=== PATIENT | male | born 1945 | race Caucasian/White ===

== ENCOUNTER 2018-04-21 18:17 | Emergency (ER) | payer OTHER, SELFPAY ==
[2018-04-21 18:27] VITALS: BP 160/70; PULSE 64; RESP 18; O2SAT 97
--- NOTE | 2018-04-21 18:27 | ED.CHESTPAIN ---
HPI - Chest Pain <CHITO Roberts - Last Filed: 04/21/18 22:16> General Chief Complaint: Chest Pain Stated Complaint: CHEST TIGHTNESS AND ACROSS BACK Time Seen by Provider: 04/21/18 18:27 Source: patient Mode of arrival: ambulatory Limitations: no limitations History of Present Illness HPI narrative: 72-year-old male here for complaint of pain into his chest that started couple hours prior to arrival. He states that started as sternal chest pain that started shortly after lunch. He states he did have a spicy lunch and was wondering if this may have caused his chest pain. Ago for walk-in for the chest pain started which did not help his chest pain or did not worsen his chest pain either. He denies any trauma to the chest wall. He denies any nausea vomiting or shortness of breath. No fevers no chills. At time of exam his chest pain had resolved. He denies any other concerns or complaints. Related Data Home Medications Medication Instructions Recorded Confirmed aspirin 81 mg PO QDAY #0 02/15/17 glimepiride [Amaryl] #0 02/15/17 metformin [Glucophage XR] 500 mg PO BID #0 02/15/17 simvastatin 40 mg PO QDAY #0 02/15/17 tamsulosin [Flomax] 0.4 mg PO QDAY #0 02/15/17 Allergies Allergy/AdvReac Type Severity Reaction Status Date / Time No Known Allergies Allergy Uncoded 10/10/17 11:48 Review of Systems <CHITO Roberts - Last Filed: 04/21/18 22:16> Constitutional Denies chills, Denies fatigue, Denies fever(s), Denies lethargy and Denies weakness Eyes Denies change in vision, Denies eye discharge, Denies irritation and Denies loss of vision ENT Ears, Nose, Mouth, and Throat: Denies change in voice, Denies neck pain and Denies sore throat Cardiovascular Denies dyspnea and Denies dyspnea on exertion Comments: Chest pain Respiratory Denies cough, Denies dyspnea, Denies dyspnea on exertion and Denies wheezing Gastrointestinal Gastrointestinal: Denies abdominal pain, Denies change in bowel habits, Denies diarrhea, Denies nausea and Denies vomiting Genitourinary Denies hematuria, Denies flank pain, Denies urinary incontinence and Denies urinary urgency Musculoskeletal Denies neck pain Integumentary/Breasts Denies pruritus, Denies erythema, Denies rash and Denies wounds Neurologic Denies confusion, Denies loss of vision and Denies weakness Psychiatric Denies anxiety, Denies confusion, Denies depression, Denies homicidal ideation and Denies suicidal ideation Endocrine Denies fatigue and Denies flushing Hematologic/Lymphatic Denies easy bruising Allergic/Immunologic Denies wheezing Exam <CHITO Roberts - Last Filed: 04/21/18 22:16> Initial Vital Signs Initial Vital Signs: Vital Signs Pulse Rate 64 04/21/18 18:27 Respiratory Rate 18 04/21/18 18:27 Blood Pressure 160/70 H 04/21/18 18:27 Pulse Oximetry 97 04/21/18 18:27 Const General: cooperative and well developed Nutritional Appearance: well nourished Orientation: alert, awake, oriented x3 and not confused HENMT Mouth: oral mucosae normal and moist mucous membranes Eyes General: appearance normal, both eyes and all related structures Eyelids: eyelids normal Conjunctivae: conjunctivae normal Sclera: sclerae normal Pupils: PERRL EOM: EOM intact bilaterally Neck Neck: normal visual inspection, trachea midline, No lymphadenopathy, No midline deformity and No JVD Lymphatic: No lymphedema Chest Chest: normal inspection of the chest Resp Effort & Inspection: normal respiratory effort, able to speak in complete sentences, no respiratory distress and no use of accessory muscles Auscultation: clear to auscultation bilaterally, no rales, no rhonchi and no wheezes Cardio Rate: regular rate Rhythm: regular rhythm Heart Sounds: no click, no gallops, no murmurs and no rubs Pulses: normal peripheral pulses GI Inspection: non-distended Palpation: soft, no hepatosplenomegaly, No guarding, No pulsatile mass and No tender Auscultation: normal bowel sounds Skin General: no rashes or lesions noted, No jaundice and No petechiae Neuro General: alert, oriented x3, gait normal and no focal motor deficits Speech: speech normal <Elza Chavez DO - Last Filed: 04/22/18 04:24> Initial Vital Signs Initial Vital Signs: Vital Signs Pulse Rate 64 04/21/18 18:27 Respiratory Rate 18 04/21/18 18:27 Blood Pressure 160/70 H 04/21/18 18:27 Pulse Oximetry 97 10/21/18 18:27 Course <CHITO Roberts - Last Filed: 04/21/18 22:16> Orders Ordered: ED Orders 04/21/18 20:58 Troponin I Stat Discontinued Medications Pantoprazole Sodium (Protonix) 20 mg IV NOW ONE Stop: 04/21/18 18:46 Last Admin: 04/21/18 18:54 Dose: 20 mg Vital Signs - 8 hr 04/21/18 20:34 04/21/18 22:00 Pulse Rate 65 57 L Respiratory Rate 18 19 Blood Pressure [Left Arm] 138/64 130/59 L Pulse Oximetry 98 97 <Elza Chavez DO - Last Filed: 04/22/18 04:24> Orders Ordered: ED Orders 04/21/18 20:58 Troponin I Stat Discontinued Medications Pantoprazole Sodium (Protonix) 20 mg IV NOW ONE Stop: 04/21/18 18:46 Last Admin: 04/21/18 18:54 Dose: 20 mg Vital Signs - 8 hr 04/21/18 20:34 04/21/18 22:00 Pulse Rate 65 57 L Respiratory Rate 18 19 Blood Pressure [Left Arm] 138/64 130/59 L Pulse Oximetry 98 97 MDM - Chest Pain <CHITO Roberts - Last Filed: 04/21/18 22:16> Lab Data Result diagrams: 04/21/18 18:36 04/21/18 18:36 Lab Results 04/21/18 04/21/18 04/21/18 Range/Units 18:36 18:36 20:58 WBC 7.4 (4.5-11.0) X10^3/uL RBC 4.35 L (4.5-5.9) X10^6/uL Hgb 13.2 L (13.5-17.5) g/dL Hct 39.5 L (41-53) % MCV 90.8 (80-100) fL MCH 30.2 (26-34) PG MCHC 33.3 (30-36) % RDW 14.0 (11.6-14.8) % Plt Count 241 (150-400) X10^3/uL Neut % (Auto) 65.2 (50-75) % Lymph % (Auto) 23.0 L (25-40) % [place] % (Auto) 8.8 (3-14) % Eos % (Auto) 2.2 (2-4) % Baso % (Auto) 0.8 (0-2) % Neut # (Auto) 4800 (1797-7195) /uL Sodium 143 (137-145) mmol/L Potassium 4.1 (3.4-5.1) mmol/L Chloride 104 (98-107) mmol/L Carbon Dioxide 26 (22-32) mmol/L BUN 22 H (9-20) mg/dL Creatinine 0.80 (0.66-1.25) mg/dL Estimated GFR > 60.0 (>60) mL/min BUN/Creatinine Ratio 27.5 H (6-22) Glucose 143 H (80-110) mg/dL Calcium 9.1 (8.4-10.2) mg/dL Total Bilirubin 0.8 (0.2-1.3) mg/dL AST 20 (17-59) IU/L ALT 35 (21-72) IU/L Alkaline Phosphatase 87 (38-126) U/L Total Creatine Kinase 57 (55-170) U/L CK-MB (CK-2) TNP CK-MB (CK-2) Rel Index TNP Troponin I < 0.012 < 0.012 (0.01-0.034) ng/mL Total Protein 6.7 (6.3-8.2) g/dL Albumin 4.4 (3.5-5.0) g/dL Globulin 2.3 (1.7-4.1) g/dL Albumin/Globulin Ratio 1.9 (1.0-2.8) Imaging Data Chest x-ray: Radiologist's impression: [address] [address] XRay Report Signed Patient: Bam Schulte KMR#: [id number] : 6Acct:[id number] Age/Sex: 72 / MDate of Service: 04/21/18 Loc: ED Accession Number: [id number] Procedure: XR chest 1V Ordering Provider: Remi Melendez PROCEDURE: XR CHEST 1V INDICATIONS: chest pain TECHNIQUE: One view of the chest was acquired. COMPARISON: None. FINDINGS: Surgical changes and devices: None. Lungs and pleura: No pleural effusions or pneumothorax. Lungs are clear. Mediastinum: Mediastinal contours appear normal. Heart size is normal. Bones and chest wall: No suspicious bony lesions. Overlying soft tissues appear unremarkable. IMPRESSION: No acute cardiopulmonary findings. Dictated by: Renee Monson M.D. on 04/21/2018 at 19:19 Approved by: Renee Monson M.D. on 04/21/2018 at 19:19 ECG Data Interpretation: EKG shows normal sinus rhythm with no ST elevation or depression. No ectopy. Ventricular rate is 64. Pr interval 196. QRS duration of 85. QT of 389. MDM Narrative Medical decision making narrative: CBC and Chem panel were obtained were unremarkable. EKG shows normal sinus rhythm with no ST elevation or depression. Patient's chest pain resolved while in the emergency room. He was given Protonix to help with his symptoms. 2 sets of cardiac enzymes were obtained and were negative. Chest x-ray was obtained was negative for any acute findings. Differential between acid indigestion and chest wall pain. Use [id number] Tylenol as needed for any discomfort [id number] antacids as needed for any acid indigestion. Follow up with primary care provider later this week for re-evaluation. For any worsening symptoms return to the emergency room. <Elza Chavez, DO - Last Filed: 04/22/18 04:24> Lab Data Lab Results 04/21/18 04/21/18 04/21/18 Range/Units 18:36 18:36 20:58 WBC 7.4 (4.5-11.0) X10^3/uL RBC 4.35 L (4.5-5.9) X10^6/uL Hgb 13.2 L (13.5-17.5) g/dL Hct 39.5 L (41-53) % MCV 90.8 (80-100) fL MCH 30.2 (26-34) PG MCHC 33.3 (30-36) % RDW 14.0 (11.6-14.8) % Plt Count 241 (150-400) X10^3/uL Neut % (Auto) 65.2 (50-75) % Lymph % (Auto) 23.0 L (25-40) % [place] % (Auto) 8.8 (3-14) % Eos % (Auto) 2.2 (2-4) % Baso % (Auto) 0.8 (0-2) % Neut # (Auto) 4800 (2151-1220) /uL Sodium 143 (137-145) mmol/L Potassium 4.1 (3.4-5.1) mmol/L Chloride 104 (98-107) mmol/L Carbon Dioxide 26 (22-32) mmol/L BUN 22 H (9-20) mg/dL Creatinine 0.80 (0.66-1.25) mg/dL Estimated GFR > 60.0 (>60) mL/min BUN/Creatinine Ratio 27.5 H (6-22) Glucose 143 H (80-110) mg/dL Calcium 9.1 (8.4-10.2) mg/dL Total Bilirubin 0.8 (0.2-1.3) mg/dL AST 20 (17-59) IU/L ALT 35 (21-72) IU/L Alkaline Phosphatase 87 (38-126) U/L Total Creatine Kinase 57 (55-170) U/L CK-MB (CK-2) TNP CK-MB (CK-2) Rel Index TNP Troponin I < 0.012 < 0.012 (0.01-0.034) ng/mL Total Protein 6.7 (6.3-8.2) g/dL Albumin 4.4 (3.5-5.0) g/dL Globulin 2.3 (1.7-4.1) g/dL Albumin/Globulin Ratio 1.9 (1.0-2.8) Discharge Plan Departure Patient Disposition: Home Clinical Impression: Chest pain Discharge Date/Time: 04/21/18 22:05 Interventions: ED Discharge Assessment Last Done: 04/21/18 22:57 Instructions: DI for Chest Pain Activity Restrictions/Additional Instructions: Laboratory results imaging and EKG today were unremarkable. Differential between and chest wall pain and acid ingestion. Follow up with her primary care provider later this week for re-evaluation. For any worsening symptoms return to the emergency room. Use [id number] Tylenol as needed for any discomfort. May use qqvz-ggm-aeqcmcr antacids as needed for acid indigestion. Prescriptions: No Action simvastatin 40 MG tablet 40 mg PO QDAY Qty: 0 RF: 0 tamsulosin [Flomax] 0.4 MG capsule,extended release 24hr 0.4 mg PO QDAY Qty: 0 RF: 0 metformin [Glucophage XR] 500 MG tablet extended release 24 hr 500 mg PO BID Qty: 0 RF: 0 aspirin 81 MG tablet,delayed release (DR/EC) 81 mg PO QDAY Qty: 0 RF: 0 glimepiride [Amaryl] 1 MG tablet Qty: 0 RF: 0 Referrals: Pierce Mace MD [Primary Care Provider] - <Elza Chavez DO - Last Filed: 04/22/18 04:24> Cosign ED Attending Cosignature Attestation: I was immediately available in the department for consultation. This documentation has been reviewed and I agree with assessment and plan. Supervised by Elza Chavez DO
--- NOTE | 2018-04-21 18:46 | DI.RAD.S_ITS ---
PROCEDURE: XR CHEST 1V INDICATIONS: chest pain TECHNIQUE: One view of the chest was acquired. COMPARISON: None. FINDINGS: Surgical changes and devices: None. Lungs and pleura: No pleural effusions or pneumothorax. Lungs are clear. Mediastinum: Mediastinal contours appear normal. Heart size is normal. Bones and chest wall: No suspicious bony lesions. Overlying soft tissues appear unremarkable. IMPRESSION: No acute cardiopulmonary findings. Dictated by: Renee Monson M.D. on 04/21/2018 at 19:19 Approved by: Renee Monson M.D. on 04/21/2018 at 19:19
[2018-04-21 18:54] LABS: Add Manual Diff / Slide Review NO; Basophils Percent Auto 0.8 % (0-2); Eosinophils Percent Auto 2.2 % (2-4); Hematocrit 39.5 % (41-53); Hemoglobin 13.2 g/dL (13.5-17.5); Mean Corpuscular HGB Conc 33.3 % (30-36); Mean Corpuscular Hemoglobin 30.2 PG (26-34); Mean Corpuscular Volume 90.8 fL (80-100); Monocytes Percent Auto 8.8 % (3-14); Neutrophils Absolute Auto 4800 /uL (3000-5900); Neutrophils Percent Auto 65.2 % (50-75); Platelet Count 241 X10^3/uL (150-400); Red Blood Cell Count 4.35 X10^6/uL (4.5-5.9); White Blood Cell Count 7.4 X10^3/uL (4.5-11.0)
[2018-04-21] MEDS: PANTOPRAZOLE 40 MG VIAL 20 MG IV (18:54)
[2018-04-21 19:00] LABS: Alanine Aminotransferase 35 IU/L (21-72); Albumin 4.4 g/dL (3.5-5.0); Albumin Globulin Ratio 1.9 (1.0-2.8); Alkaline Phosphatase 87 U/L (38-126); Aspartate Aminotransferase 20 IU/L (17-59); BUN Creatinine Ratio 27.5 (6-22); Bilirubin Total 0.8 mg/dL (0.2-1.3); Blood Urea Nitrogen 22 mg/dL (9-20); Calcium 9.1 mg/dL (8.4-10.2); Carbon Dioxide 26 mmol/L (22-32); Chloride 104 mmol/L (98-107); Creatine Kinase 57 U/L (55-170); Estimated Glomerular Filt Rate > 60.0 mL/min (>60); Globulin 2.3 g/dL (1.7-4.1); Glucose 143 mg/dL (80-110); HEMOLYSIS < 15 (0-50); Potassium 4.1 mmol/L (3.4-5.1); Sodium 143 mmol/L (137-145); Total Protein 6.7 g/dL (6.3-8.2)
[2018-04-21 19:15] LABS: Troponin I < 0.012 ng/mL (0.01-0.034)
--- NOTE | 2018-04-21 19:32 | PC.NURSE ---
Pt reports eating something that tasted spicy or garlicy. left him with a sour taste in his mouth. Then a while later he started to feel a tightness across his chest. He thought a walk would help and it did not. he decided to come in and get evaluated. He also reports he started Flonaise on sunday for head congestion. he wonders if that may be related.
[2018-04-21 20:09] VITALS: BP 131/68; PULSE 63; RESP 14; O2SAT 97
[2018-04-21 20:34] VITALS: BP 138/64; PULSE 65; RESP 18; O2SAT 98
--- NOTE | 2018-04-21 20:59 | PC.NURSE ---
drawn by lab
[2018-04-21 21:44] LABS: Troponin I < 0.012 ng/mL (0.01-0.034)
--- NOTE | 2018-04-21 21:54 | ED_ITS ---
HPI - Chest Pain <CHITO Roberts - Last Filed: 04/21/18 22:16> General Chief Complaint: Chest Pain Stated Complaint: CHEST TIGHTNESS AND ACROSS BACK Time Seen by Provider: 04/21/18 18:27 Source: patient Mode of arrival: ambulatory Limitations: no limitations History of Present Illness HPI narrative: 72-year-old male here for complaint of pain into his chest that started couple hours prior to arrival. He states that started as sternal chest pain that started shortly after lunch. He states he did have a spicy lunch and was wondering if this may have caused his chest pain. Ago for walk-in for the chest pain started which did not help his chest pain or did not worsen his chest pain either. He denies any trauma to the chest wall. He denies any nausea vomiting or shortness of breath. No fevers no chills. At time of exam his chest pain had resolved. He denies any other concerns or complaints. Related Data Home Medications Medication Instructions Recorded Confirmed aspirin 81 mg PO QDAY #0 02/15/17 glimepiride [Amaryl] #0 02/15/17 metformin [Glucophage XR] 500 mg PO BID #0 02/15/17 simvastatin 40 mg PO QDAY #0 02/15/17 tamsulosin [Flomax] 0.4 mg PO QDAY #0 02/15/17 Allergies Allergy/AdvReac Type Severity Reaction Status Date / Time No Known Allergies Allergy Uncoded 10/10/17 11:48 Review of Systems <CHITO Roberts - Last Filed: 04/21/18 22:16> Constitutional Denies chills, Denies fatigue, Denies fever(s), Denies lethargy and Denies weakness Eyes Denies change in vision, Denies eye discharge, Denies irritation and Denies loss of vision ENT Ears, Nose, Mouth, and Throat: Denies change in voice, Denies neck pain and Denies sore throat Cardiovascular Denies dyspnea and Denies dyspnea on exertion Comments: Chest pain Respiratory Denies cough, Denies dyspnea, Denies dyspnea on exertion and Denies wheezing Gastrointestinal Gastrointestinal: Denies abdominal pain, Denies change in bowel habits, Denies diarrhea, Denies nausea and Denies vomiting Genitourinary Denies hematuria, Denies flank pain, Denies urinary incontinence and Denies urinary urgency Musculoskeletal Denies neck pain Integumentary/Breasts Denies pruritus, Denies erythema, Denies rash and Denies wounds Neurologic Denies confusion, Denies loss of vision and Denies weakness Psychiatric Denies anxiety, Denies confusion, Denies depression, Denies homicidal ideation and Denies suicidal ideation Endocrine Denies fatigue and Denies flushing Hematologic/Lymphatic Denies easy bruising Allergic/Immunologic Denies wheezing Exam <CHITO Roberts - Last Filed: 04/21/18 22:16> Initial Vital Signs Initial Vital Signs: Vital Signs Pulse Rate 64 04/21/18 18:27 Respiratory Rate 18 04/21/18 18:27 Blood Pressure 160/70 H 04/21/18 18:27 Pulse Oximetry 97 04/21/18 18:27 Const General: cooperative and well developed Nutritional Appearance: well nourished Orientation: alert, awake, oriented x3 and not confused HENMT Mouth: oral mucosae normal and moist mucous membranes Eyes General: appearance normal, both eyes and all related structures Eyelids: eyelids normal Conjunctivae: conjunctivae normal Sclera: sclerae normal Pupils: PERRL EOM: EOM intact bilaterally Neck Neck: normal visual inspection, trachea midline, No lymphadenopathy, No midline deformity and No JVD Lymphatic: No lymphedema Chest Chest: normal inspection of the chest Resp Effort & Inspection: normal respiratory effort, able to speak in complete sentences, no respiratory distress and no use of accessory muscles Auscultation: clear to auscultation bilaterally, no rales, no rhonchi and no wheezes Cardio Rate: regular rate Rhythm: regular rhythm Heart Sounds: no click, no gallops, no murmurs and no rubs Pulses: normal peripheral pulses GI Inspection: non-distended Palpation: soft, no hepatosplenomegaly, No guarding, No pulsatile mass and No tender Auscultation: normal bowel sounds Skin General: no rashes or lesions noted, No jaundice and No petechiae Neuro General: alert, oriented x3, gait normal and no focal motor deficits Speech: speech normal <Elza Chavez DO - Last Filed: 04/22/18 04:24> Initial Vital Signs Initial Vital Signs: Vital Signs Pulse Rate 64 04/21/18 18:27 Respiratory Rate 18 04/21/18 18:27 Blood Pressure 160/70 H 04/21/18 18:27 Pulse Oximetry 97 10/21/18 18:27 Course <CHITO Roberts - Last Filed: 04/21/18 22:16> Orders Ordered: ED Orders 04/21/18 20:58 Troponin I Stat Discontinued Medications Pantoprazole Sodium (Protonix) 20 mg IV NOW ONE Stop: 04/21/18 18:46 Last Admin: 04/21/18 18:54 Dose: 20 mg Vital Signs - 8 hr 04/21/18 20:34 04/21/18 22:00 Pulse Rate 65 57 L Respiratory Rate 18 19 Blood Pressure [Left Arm] 138/64 130/59 L Pulse Oximetry 98 97 <Elza Chavez DO - Last Filed: 04/22/18 04:24> Orders Ordered: ED Orders 04/21/18 20:58 Troponin I Stat Discontinued Medications Pantoprazole Sodium (Protonix) 20 mg IV NOW ONE Stop: 04/21/18 18:46 Last Admin: 04/21/18 18:54 Dose: 20 mg Vital Signs - 8 hr 04/21/18 20:34 04/21/18 22:00 Pulse Rate 65 57 L Respiratory Rate 18 19 Blood Pressure [Left Arm] 138/64 130/59 L Pulse Oximetry 98 97 MDM - Chest Pain <CHITO Roberts - Last Filed: 04/21/18 22:16> Lab Data Result diagrams: 04/21/18 18:36 04/21/18 18:36 Lab Results 04/21/18 04/21/18 04/21/18 Range/Units 18:36 18:36 20:58 WBC 7.4 (4.5-11.0) X10^3/uL RBC 4.35 L (4.5-5.9) X10^6/uL Hgb 13.2 L (13.5-17.5) g/dL Hct 39.5 L (41-53) % MCV 90.8 (80-100) fL MCH 30.2 (26-34) PG MCHC 33.3 (30-36) % RDW 14.0 (11.6-14.8) % Plt Count 241 (150-400) X10^3/uL Neut % (Auto) 65.2 (50-75) % Lymph % (Auto) 23.0 L (25-40) % [place] % (Auto) 8.8 (3-14) % Eos % (Auto) 2.2 (2-4) % Baso % (Auto) 0.8 (0-2) % Neut # (Auto) 4800 (0579-5382) /uL Sodium 143 (137-145) mmol/L Potassium 4.1 (3.4-5.1) mmol/L Chloride 104 (98-107) mmol/L Carbon Dioxide 26 (22-32) mmol/L BUN 22 H (9-20) mg/dL Creatinine 0.80 (0.66-1.25) mg/dL Estimated GFR > 60.0 (>60) mL/min BUN/Creatinine Ratio 27.5 H (6-22) Glucose 143 H (80-110) mg/dL Calcium 9.1 (8.4-10.2) mg/dL Total Bilirubin 0.8 (0.2-1.3) mg/dL AST 20 (17-59) IU/L ALT 35 (21-72) IU/L Alkaline Phosphatase 87 (38-126) U/L Total Creatine Kinase 57 (55-170) U/L CK-MB (CK-2) TNP CK-MB (CK-2) Rel Index TNP Troponin I < 0.012 < 0.012 (0.01-0.034) ng/mL Total Protein 6.7 (6.3-8.2) g/dL Albumin 4.4 (3.5-5.0) g/dL Globulin 2.3 (1.7-4.1) g/dL Albumin/Globulin Ratio 1.9 (1.0-2.8) Imaging Data Chest x-ray: Radiologist's impression: [address] [address] XRay Report Signed Patient: Bam Schulte KMR#: [id number] : 6Acct:[id number] Age/Sex: 72 / MDate of Service: 04/21/18 Loc: ED Accession Number: [id number] Procedure: XR chest 1V Ordering Provider: Remi Melendez PROCEDURE: XR CHEST 1V INDICATIONS: chest pain TECHNIQUE: One view of the chest was acquired. COMPARISON: None. FINDINGS: Surgical changes and devices: None. Lungs and pleura: No pleural effusions or pneumothorax. Lungs are clear. Mediastinum: Mediastinal contours appear normal. Heart size is normal. Bones and chest wall: No suspicious bony lesions. Overlying soft tissues appear unremarkable. IMPRESSION: No acute cardiopulmonary findings. Dictated by: Renee Monson M.D. on 04/21/2018 at 19:19 Approved by: Renee Monson M.D. on 04/21/2018 at 19:19 ECG Data Interpretation: EKG shows normal sinus rhythm with no ST elevation or depression. No ectopy. Ventricular rate is 64. Pr interval 196. QRS duration of 85. QT of 389. MDM Narrative Medical decision making narrative: CBC and Chem panel were obtained were unremarkable. EKG shows normal sinus rhythm with no ST elevation or depression. Patient's chest pain resolved while in the emergency room. He was given Protonix to help with his symptoms. 2 sets of cardiac enzymes were obtained and were negative. Chest x-ray was obtained was negative for any acute findings. Differential between acid indigestion and chest wall pain. Use over-the- counter Tylenol as needed for any discomfort [id number] antacids as needed for any acid indigestion. Follow up with primary care provider later this week for re-evaluation. For any worsening symptoms return to the emergency room. <Elza Chavez, DO - Last Filed: 04/22/18 04:24> Lab Data Lab Results 04/21/18 04/21/18 04/21/18 Range/Units 18:36 18:36 20:58 WBC 7.4 (4.5-11.0) X10^3/uL RBC 4.35 L (4.5-5.9) X10^6/uL Hgb 13.2 L (13.5-17.5) g/dL Hct 39.5 L (41-53) % MCV 90.8 (80-100) fL MCH 30.2 (26-34) PG MCHC 33.3 (30-36) % RDW 14.0 (11.6-14.8) % Plt Count 241 (150-400) X10^3/uL Neut % (Auto) 65.2 (50-75) % Lymph % (Auto) 23.0 L (25-40) % [place] % (Auto) 8.8 (3-14) % Eos % (Auto) 2.2 (2-4) % Baso % (Auto) 0.8 (0-2) % Neut # (Auto) 4800 (5981-3559) /uL Sodium 143 (137-145) mmol/L Potassium 4.1 (3.4-5.1) mmol/L Chloride 104 (98-107) mmol/L Carbon Dioxide 26 (22-32) mmol/L BUN 22 H (9-20) mg/dL Creatinine 0.80 (0.66-1.25) mg/dL Estimated GFR > 60.0 (>60) mL/min BUN/Creatinine Ratio 27.5 H (6-22) Glucose 143 H (80-110) mg/dL Calcium 9.1 (8.4-10.2) mg/dL Total Bilirubin 0.8 (0.2-1.3) mg/dL AST 20 (17-59) IU/L ALT 35 (21-72) IU/L Alkaline Phosphatase 87 (38-126) U/L Total Creatine Kinase 57 (55-170) U/L CK-MB (CK-2) TNP CK-MB (CK-2) Rel Index TNP Troponin I < 0.012 < 0.012 (0.01-0.034) ng/mL Total Protein 6.7 (6.3-8.2) g/dL Albumin 4.4 (3.5-5.0) g/dL Globulin 2.3 (1.7-4.1) g/dL Albumin/Globulin Ratio 1.9 (1.0-2.8) Discharge Plan Departure Patient Disposition: Home Clinical Impression: Chest pain Discharge Date/Time: 04/21/18 22:05 Interventions: ED Discharge Assessment Last Done: 04/21/18 22:57 Instructions: DI for Chest Pain Activity Restrictions/Additional Instructions: Laboratory results imaging and EKG today were unremarkable. Differential between and chest wall pain and acid ingestion. Follow up with her primary care provider later this week for re-evaluation. For any worsening symptoms return to the emergency room. Use [id number]-[id number] Tylenol as needed for any discomfort. May use mepk-ssb-hjsirrn antacids as needed for acid indigestion. Prescriptions: No Action simvastatin 40 MG tablet 40 mg PO QDAY Qty: 0 RF: 0 tamsulosin [Flomax] 0.4 MG capsule,extended release 24hr 0.4 mg PO QDAY Qty: 0 RF: 0 metformin [Glucophage XR] 500 MG tablet extended release 24 hr 500 mg PO BID Qty: 0 RF: 0 aspirin 81 MG tablet,delayed release (DR/EC) 81 mg PO QDAY Qty: 0 RF: 0 glimepiride [Amaryl] 1 MG tablet Qty: 0 RF: 0 Referrals: Pierce Mace MD [Primary Care Provider] - <Elza Chavez DO - Last Filed: 04/22/18 04:24> Cosign ED Attending Cosignature Attestation: I was immediately available in the department for consultation. This documentation has been reviewed and I agree with assessment and plan. Supervised by Elza Chavez DO
[2018-04-21 22:00] VITALS: BP 130/59; PULSE 57; RESP 19; O2SAT 97
== END 2018-04-21 22:05 | disposition home or self-care (01) ==
PROVIDERS: Emergency Provider Nurse Practitioner Family; PCP Internal Medicine
DX: R07.89 Other chest pain (principal)
CPT/HCPCS: 36415; 36591; 71045; 80053; 82550; 84484; 85025; 93005; 93010; 96374; 99283; 99285; C9113

== ENCOUNTER → 2019-09-05 10:42 | Outpatient (CLI) | payer OTHER, SELFPAY ==
--- NOTE | 2019-09-05 | DI.US.S_ITS ---
PROCEDURE: US ABDOMEN LIMITED INDICATIONS: INGUINAL HERNIA TECHNIQUE: Real-time focused scanning was performed of the abdomen, with image documentation. COMPARISON: None. FINDINGS: Left inguinal hernia although does not contain bowel loops with or without Valsalva maneuver. IMPRESSION: Left inguinal hernia as above. Dictated by: Tyshawn Sen M.D. on 09/05/2019 at 17:15 Approved by: Tyshawn Sen M.D. on 09/05/2019 at 17:17
== END ==
PROVIDERS: PCP Internal Medicine; Referring Provider Student in an Organized Health Care Education/Training Program; Visit Provider Student in an Organized Health Care Education/Training Program
DX: K40.90 Unilateral inguinal hernia, without obstruction or gangrene, not specified as recurrent (principal)
CPT/HCPCS: 76705

== ENCOUNTER → 2019-10-22 11:11 | Outpatient (CLI) | payer OTHER, SELFPAY ==
[2019-10-22 11:45] LABS: Add Manual Diff / Slide Review NO; Basophils Absolute Auto 0 /uL (0-100); Basophils Percent Auto 0.4 % (0-2); Eosinophils Absolute Auto 100 /uL (0-450); Eosinophils Percent Auto 0.9 % (2-4); Hematocrit 40.2 % (41-53); Hemoglobin 13.6 g/dL (13.5-17.5); Lymphocytes Absolute Auto 1200 /uL (1100-4500); Mean Corpuscular HGB Conc 33.9 % (30-36); Mean Corpuscular Hemoglobin 31.1 PG (26-34); Mean Corpuscular Volume 91.5 fL (80-100); Monocytes Absolute Auto 600 /uL (0-900); Monocytes Percent Auto 7.7 % (3-14); Neutrophils Absolute Auto 5400 /uL (1500-7000); Platelet Count 239 X10^3/uL (150-400); Red Blood Cell Count 4.39 X10^6/uL (4.5-5.9); Red Cell Distribution Width 13.8 % (11.6-14.8); White Blood Cell Count 7.2 X10^3/uL (4.5-11.0)
[2019-10-22 11:57] LABS: Hemoglobin A1C% w Est Avg Glu 6.5 % (4.0-6.0)
== END ==
PROVIDERS: PCP Student in an Organized Health Care Education/Training Program; Referring Provider Student in an Organized Health Care Education/Training Program; Visit Provider Student in an Organized Health Care Education/Training Program
DX: D64.9 Anemia, unspecified (principal); E11.9 Type 2 diabetes mellitus without complications
CPT/HCPCS: 36415; 83036; 85025

== ENCOUNTER 2023-02-22 08:26 | Day surgery (SDC) | payer OTHER, SELFPAY ==
--- NOTE | 2023-02-22 | PATH_ITS ---
[facility] Accession Number: [id number] No. of containers..04 Tissue . 01 Material submitted: . PART A: cecum - CECAL POLYPS PART B: colon - ASCENDING POLYPS PART C: colon - TRANSVERSE POLYPS PART D: sigmoid colon - SIGMOID POLYP . 01 Diagnosis: A. Cecal Polyps, Biopsy: Tubular adenoma. Hyperplastic polyp. . B. Ascending Colon Polyps, Biopsy: Tubulovillous adenoma fragments. Tubular adenomas. . C. Transverse Colon Polyps, Biopsy: Tubular adenoma. . D. Sigmoid Colon Polyp, Biopsy: Tubular adenoma. [facility] 03/06/2023 1542 Local . 01 Electronically signed: . Janine Kilpatrick MD, Pathologist NPI- [id number] . 01 Gross description: . Part A: CECAL POLYPS: Received in formalin is 2 fragment(s) of begum, soft tissue measuring 0.4 x 0.4 x 0.2 cm to 0.1 x 0.1 x 0.1 cm submitted entirely in 1 cassette(s) Part B: ASCENDING POLYPS: Received in formalin is multiple fragment(s) of begum, soft tissue measuring 2.0 x 1.0 x 0.3 cm in aggregate submitted entirely in 1 cassette(s) Part C: TRANSVERSE POLYPS: Received in formalin is 1 fragment(s) of begum, soft tissue measuring 1.0 x 0.4 x 0.3 cm submitted entirely in 1 cassette(s) Part D: SIGMOID POLYP: Received in formalin is 1 fragment(s) of begum, soft tissue measuring 0.3 x 0.2 x 0.2 cm submitted entirely in 1 cassette(s) /AAY 02/24/2023 0237 Local . 01 Pathologist provided ICD-10: D12.0, D12.2, D12.3, D12.5 . 01 CPT . 172341, 620473, 223953, 145540 Specimen Comment: A courtesy copy of this report has been sent to [phone] Performed at: 01 [facility] [address] [place] [address] [id number] MD Mike Gallagher MD Phone: [phone]
[2023-02-22 08:44] VITALS: BMI 24.7
[2023-02-22 09:10] VITALS: BP 161/78; PULSE 59; RESP 16; TEMP 36.1; O2SAT 98
[2023-02-22] MEDS: LACTATED RINGERS 1,000 ML 42 ML IV (09:14)
--- NOTE | 2023-02-22 10:05 | PM.HP.1 ---
History of Present Illness History of Present Illness Date Patient Seen: 02/22/23 Time Patient Seen: 10:05 Chief complaint: SDC Narrative: Bam is a 77-year-old man who is here for colonoscopy. His last 1 was about 7 years ago and he thinks 1 or 2 small polyps were removed. His mother had colon cancer in her 70s. [facility] Social History household members: spouse Smoking Status: Never smoker alcohol intake: never Meds Home Medications and Allergies Home Medications Medication Instructions Recorded Confirmed Type glimepiride 1 mg tablet (Amaryl) ##0 02/15/17 History metformin 500 mg tablet,extended 500 mg PO BID ##0 02/15/17 02/22/23 History release 24 hr (Glucophage XR) simvastatin 40 mg tablet 40 mg PO QDAY ##0 02/15/17 02/22/23 History tamsulosin 0.4 mg capsule (Flomax) 0.4 mg PO QDAY ##0 02/15/17 02/22/23 History ferrous sulfate 325 mg (65 mg 325 mg PO DAILY 02/22/23 02/22/23 History iron) tablet (FeroSul) lisinopril 2.5 mg tablet 2.5 mg PO DAILY 02/22/23 02/22/23 History Allergies Allergy/AdvReac Type Severity Reaction Status Date / Time No Known Allergies Allergy Uncoded 10/10/17 11:48 Exam Vital Signs (past 8 hours): - 02/22/23 09:10 Temperature 97 F L Pulse Rate 59 L Respiratory Rate 16 Blood Pressure 161/78 H Pulse Oximetry 98 Oxygen Delivery Method Room Air Oxygen Delivery Method Room Air Const General: healthy appearing Assessment & Plan Assessment and plan (1) History of colon polyps: Status: Acute Plan We reviewed the risks and benefits colonoscopy and he would like to proceed.
--- NOTE | 2023-02-22 11:31 | PM.OP.COLON ---
Operative Date/Time/Diagnoses Date of procedure: 02/22/23 Time of procedure: 11:31 Pre-op diagnosis: History of polyps Post-op diagnosis: same Procedure & Clinicians Study performed: Colonoscopy Same procedure as scheduled: Yes Surgeon: Bishnu Andre Procedure Notes Procedure in detail: Surgeon: Bishnu Andre MD Anesthesia: Jordan Vazquez CRNA Procedure: The patient was brought to the endoscopy suite, placed in left lateral decubitus position. The patient was connected to monitoring devices. A time-out was performed. Sedation was administered. Once the patient was adequately sedated, a digital rectal exam was performed and was normal. The scope was then inserted and advanced to the cecum where the appendiceal orifice was identified and photographed. The scope was then slowly withdrawn over greater than 6 minutes. The mucosa was thoroughly inspected. There were 2 polyps in the cecum about 4 mm each and removed with cold snare and sent together. There were 5 polyps in the ascending colon, the largest was about 1 cm and all were removed with cold snare and sent together. There were 2 4 mm polyps in the transverse colon removed with cold snare and sent together. There was 1 4 mm polyp in the sigmoid colon removed with cold snare and sent together. There was a 3 mm polyp in the rectum that was removed with cold snare but was lost. The scope was retroflexed in the rectum. No other abnormalities were seen. The scope was straightened and removed. The patient was awakened and brought to recovery. Scope withdrawal time: 31 minutes Sedation time: 38 minutes EBL: 5 mL Findings: Numerous polyps as detailed above Post-procedure Recommendations: Colonoscopy in 3 years Disposition: PACU
[2023-02-22 11:32] VITALS: BP 127/64; PULSE 66; RESP 14; TEMP 36.2; O2SAT 98
[2023-02-22 11:37] VITALS: BP 131/60; PULSE 60; RESP 15; O2SAT 100
[2023-02-22 11:42] VITALS: BP 158/80; PULSE 60; RESP 14; TEMP 36.4; O2SAT 100
== END 2023-02-22 12:27 | disposition home or self-care (01) ==
PROVIDERS: PCP Student in an Organized Health Care Education/Training Program; Referring Provider Surgery; Visit Provider Surgery
PROC: 0DJD8ZZ Inspection of Lower Intestinal Tract, Via Natural or Artificial Opening Endoscopic (ICD-10-PCS; CPT 45378; principal; 2023-02-22 10:00)
DX: Z12.11 Encounter for screening for malignant neoplasm of colon (principal); Z86.010 Personal history of colon polyps; D12.0 Benign neoplasm of cecum; D12.2 Benign neoplasm of ascending colon; D12.3 Benign neoplasm of transverse colon; D12.5 Benign neoplasm of sigmoid colon
CPT/HCPCS: 45385; J2704